=== PATIENT | male | born 1940 | race Caucasian/White ===

== ENCOUNTER → 2017-01-06 | Outpatient (REF) | LOC: ZLAB.WCH 10:46 | DX: Z01.89 Encounter for other specified special examinations (principal) | CPT/HCPCS: G0103 ==

== ENCOUNTER → 2017-10-27 | Outpatient (CLI) | payer MEDICARE, OTHER | LOC: COL.PUL 09:35 | DX: R06.09 Other forms of dyspnea (principal) ==

== ENCOUNTER → 2017-11-05 | Outpatient (CLI) | payer MEDICARE, OTHER | LOC: COL.PUL 10:37 | DX: R06.09 Other forms of dyspnea (principal); Z87.891 Personal history of nicotine dependence | CPT/HCPCS: J7674 ==

== ENCOUNTER → 2018-01-14 | Outpatient (REF) | LOC: ZLAB.WCH 15:49 | DX: Z01.89 Encounter for other specified special examinations (principal) | CPT/HCPCS: G0103 ==